=== PATIENT | female | born 1975 | race Caucasian/White ===

== ENCOUNTER 2017-04-24 07:36 | Day surgery (SDC) | payer OTHER ==
[~2017-04-24] VITALS: Ht 160 cm; Wt 54.9 kg
[2017-04-24] VITALS (10 sets, daily range): BP systolic 105–150; BP diastolic 54–71; PULSE 68–119; RESP 13–24; Ht 160 cm; Wt 54.9 kg
[~2017-04-24 07:36] MED LIST: DOCU-159 PO; EPHEDrine SULFATE 50 MG/5 ML SYG ONE; FIORICET PO; LACTATED RINGER'S 1,000 ML IV* ONE; METO5VIA3 PO; OMEP20CA16 PO; OXYC-281 PO; SPIR50TA PO; TEMA15CA PO; TRAM50TA2 PO; ZOF4I ODT
--- NOTE | 2017-04-24 09:14 | HPN ---
Date/Time of Note Date/Time of Note DATE: 04/24/17 TIME: 09:14 Interval H&P Admission Note Pt. seen H&P reviewed: No system changes CANDE LAMB MD April 24, 2017 09:14
[2017-04-24] MEDS ORDERED: PROPOFOL 20 ML ONE (09:20)
[2017-04-24] MEDS ORDERED: MIDAZOLAM 1 MG/ML 2 ML INJ ONE (09:20)
[2017-04-24] MEDS ORDERED: FENTAnyl 50 MCG/ML VIAL ONE (09:20)
[2017-04-24] MEDS ORDERED: METOCLOPRAMIDE 10 MG INJ ONE (09:20)
[2017-04-24] MEDS ORDERED: KETOROLAC 30 MG INJ ONE (09:23)
[2017-04-24] MEDS ORDERED: EPHEDrine SULFATE 50 MG/5 ML SYG IV PRN (10:00)
[2017-04-24] MEDS ORDERED: HYDROmorphONE (0.2 MG/ML) 10ML SYG IV PRN ×3 (10:00)
[2017-04-24] MEDS ORDERED: ONDANSETRON 4 MG INJ IV PRN (10:00)
[2017-04-24] MEDS ORDERED: OXYCODONE/ACETAMINOPHEN (5/325) TAB PO PRN ×2 (10:00)
[2017-04-24] MEDS ORDERED: DIPHENHYDRAMINE 50 MG INJ IV PRN (10:00)
[2017-04-24] MEDS ORDERED: MEPERIDINE 25 MG INJ IV PRN (10:00)
[2017-04-24] MEDS ORDERED: METOCLOPRAMIDE 10 MG INJ IV PRN (10:00)
--- NOTE | 2017-04-24 10:47 | PD.PPDC ---
HEALTH EDITOR Discharge Instruction Diagnosis Final Diagnosis: endocervical polyp prominent endometrium Condition Patient Condition: Stable Diet Diet: Resume Regular Diet Activity/Restrictions Activity: March Shower Restrictions: No Sexual Activity Nothing in the Vagina No [place] No Tampons, douche Follow-up Follow-up with Physician: 2, Week/Weeks Return to clinic for BUFFER INFLATED PAD Instructions: Fever greater than 101 Chills Worsening abdominal pain Excessive Vaginal Bleeding More than 2 pads per hour Unable to tolerate diet CANDE LAMB MD April 24, 2017 10:47
--- NOTE | 2017-04-25 02:19 | OPR ---
DATE OF OPERATION: 04/24/2017 PREOPERATIVE DIAGNOSES: 1. Endocervical polyp. 2. Prominent endometrium on tamoxifen. POSTOPERATIVE DIAGNOSES: 1. Endocervical polyp. 2. Prominent endometrium on tamoxifen. See pathological report. NAME OF OPERATION: Endocervical polypectomy and endocervical curettage and hysteroscopic endometria l curettage. ANESTHESIA: General. ANESTHESIOLOGIST: Rosio Post MD SURGEON: Isreal Monteiro MD MARINE STRUCTURAL DESIGNER: Hemant from [employer]. DESCRIPTION OF PROCEDURE: Under proper induction of general anesthesia, the patient was placed in t he dorsal lithotomy position. Perineal area and vagina wall were prepped and draped in usual asepti c manner. Bimanual examination, uterus felt to be slightly increased in size, deviated toward the r ight side and markedly anteverted uterus. Weighted speculum was introduced, cervix identified, reve aled endocervical polyp which was hanging down with a stalk maybe 2 cm in length, and the width of t he polyp is 0.5 cm, which was twisted and then removed from the cervical os and left some stalk whic h approximately 1 cm. Then ECC was done but was not able to remove this stalk. After the uterine c avity was sounded, which was 9 cm in depth, os was dilated up to 6, and hysteroscope was trying to b e inserted, which was not able to do it because of somehow the angle of the os. With multiple attem pts and then deciding to dilate the cervix up to 7 cm and with positional manipulation, able to inse rt the hysteroscope. With inflow of fluid and the fundus identified and both ostium identified, the n the resector was inserted through the opening, and the blade was facing to the endometrial lining in the usual fashion and sideways, all the way to the endometrium was curetted. ____ close to the o s, there was a stalk, was removed through the resector. Fluid deficit is approximately 420 mL after the completion of the procedure. After satisfactory procedure was done, the whole hysteroscope and the resector were removed, and as I said, fluid deficit was 420, and patient withstood procedure we ll and sent to the recovery room in stable condition. Dictated By: ISREAL [place]/TONO Conf#: [id number] DID#: [id number]
== END 2017-04-24 11:50 | disposition home or self-care (01) ==
LOC: SDS 07:36
PROVIDERS: ATTEND Obstetrics & Gynecology
DX: N84.1 Polyp of cervix uteri (principal)
CPT/HCPCS: 58558; 84703; 88305; J1885; J2175; J2250; J2405; J2765; J3010; Z7512; Z7610

== ENCOUNTER 2018-03-30 09:01 | Emergency (ER) | END 2018-03-30 11:46 | disposition home or self-care (01) ==